=== PATIENT | male | born 1990 | race Caucasian/White ===

== ENCOUNTER 2020-12-26 16:27 | Emergency (ER) | payer OTHER ==
[~2020-12-26] VITALS: Ht 175.3 cm; Wt 81.2 kg
[2020-12-26 18:04] LABS: BASO % 0.4 % (0.0-1.0); EOS # 0.2 10^3/uL (0.0-0.5); EOS % 3.1 % (0.0-3.0); LYMPH # 1.4 10^3/uL (1.5-5.0); LYMPH % 19.3 % (24.0-44.0); MEAN CORPUSCULAR HEMOGLOBIN 31.4 pg (27.0-33.0); MEAN CORPUSCULAR HGB CONC 33.3 g/dl (32.0-36.5); MEAN CORPUSCULAR VOLUME 94.3 fl (80.0-96.0); MONO # 0.6 10^3/uL (0.0-0.8); MONO % 8.7 % (2.0-8.0); NEUTROPHILS # 4.8 10^3/uL (1.5-8.5); NEUTROPHILS % 68.2 % (36.0-66.0); PLATELET COUNT, AUTOMATED 305 10^3/uL (150-450); RED BLOOD COUNT 4.77 10^6/uL (4.30-6.10)
[2020-12-26 18:28] LABS: ERYTHROCYTE SEDIMENTATION RATE 3 mm/hr (0-15)
[2020-12-26] MEDS ORDERED: BACT800T5 PO (18:37)
[2020-12-26] MEDS ORDERED: BACTRIM 160MG/800MG DS TAB PO ONE (18:40)
[2020-12-26 18:51] VITALS: BP 137/80
== END 2020-12-26 18:52 | disposition home or self-care (01) ==
LOC: M ED 16:27
DX: L03.113 Cellulitis of right upper limb (principal); L03.115 Cellulitis of right lower limb; F17.220 Nicotine dependence, chewing tobacco, uncomplicated